=== PATIENT | male | born 1970 | race Caucasian/White ===

== ENCOUNTER 2018-07-27 10:49 | Day surgery (SDC) | payer MEDICARE ==
[~2018-07-27] VITALS: Ht 182.9 cm; Wt 86.2 kg
[2018-07-27] MEDS ORDERED: fentaNYL PF VIAL 100 MCG/2 ML VIAL IV ONE (11:15)
[2018-07-27] MEDS ORDERED: IV NORMAL SALINE 1000ML BAG 1,000 ML IV ONE (11:15)
[2018-07-27] MEDS ORDERED: ONDANSETRON PF 4 MG/2 ML VIAL. IV ONE (11:15)
[2018-07-27] MEDS ORDERED: MORPHINE SULFATE 4 MG/ML VIAL. IV ONE (11:45)
[2018-07-27 11:53] LABS: BASO % 1 % (0-3); EOS # 0.2 x10^3/uL (0.0-0.7); EOS % 2 % (0-3); HEMATOCRIT 45.5 % (39.0-53.0); HEMOGLOBIN 15.6 g/dL (13.0-17.5); LYMPH # 1.3 x10^3/uL (1.0-4.8); LYMPH % 20 % (24-48); MEAN CORPUSCULAR HEMOGLOBIN 30 pg (25-35); MEAN CORPUSCULAR HGB CONC 34 g/dL (31-37); MEAN CORPUSCULAR VOLUME 86 fL (79-100); MONO # 0.4 x10^3/uL (0.0-1.1); MONO % 6 % (0-9); NEUT # 4.4 x10^3uL (1.8-7.7); NEUT % 71 % (31-73); PLATELET COUNT 205 x10^3/uL (140-400); RED BLOOD COUNT 5.31 x10^6/uL (4.30-5.70); RED CELL DISTRIBUTION WIDTH 12.9 % (11.5-14.5); WHITE BLOOD COUNT 6.2 x10^3/uL (4.0-11.0)
[2018-07-27 12:01] LABS: CALCIUM 8.5 mg/dL (8.5-10.1); CREATININE 1.3 mg/dL (0.7-1.3); GFR 59.7; POTASSIUM 4.2 mmol/L (3.5-5.1)
[2018-07-27 12:02] LABS: PROTHROMBIN TIME PATIENT 13.1 SEC (11.7-14.0)
[2018-07-27 12:06] LABS: ALBUMIN 3.6 g/dL (3.4-5.0); ALBUMIN/GLOBULIN RATIO 1.1 (1.0-1.7); TOTAL BILIRUBIN 0.5 mg/dL (0.2-1.0)
--- NOTE | 2018-07-27 12:12 | PHYS DOC ---
Past Medical History Past Medical History: No Pertinent History, Seizure Past Surgical History: Appendectomy Alcohol Use: Occasionally Drug Use: None Adult General Chief Complaint Chief Complaint: LOWEREXTREMITY INJURY HPI HPI Patient is a 47 year old male who presents with complaining of injury to right lower extremity. Patient states he was cutting wood and dropped his chainsaw with a large laceration to medial side of right lower extremity with other injuries. Patient rated his pain 10 over 10 and is state yesterday of bleeding that stopped with applying pressure dressing. Patient states he does not feel his leg. patient is up-to-date with tetanus immunization. Review of Systems Review of Systems Constitutional: Denies fever or chills [] Eyes: Denies change in visual acuity, redness, or eye pain [] HENT: Denies nasal congestion or sore throat [] Respiratory: Denies cough or shortness of breath [] Cardiovascular: No additional information not addressed in HPI [] GI: Denies abdominal pain, nausea, vomiting, bloody stools or diarrhea [] : Denies dysuria or hematuria [] Musculoskeletal: Denies back pain, reports extremity pain Integument: Denies rash or skin lesions [] Neurologic: Denies headache, focal weakness or sensory changes [] Endocrine: Denies polyuria or polydipsia [] All other systems were reviewed and found to be within normal limits, except as documented in this note. Current Medications Current Medications Current Medications Medications (Trade) Dose Ordered Sig/Denis Start Time Stop Time Status Last Admin Dose Admin Cefazolin Sodium/ Dextrose 50 ml @ 100 mls/hr 1X ONCE 07/27/18 11:45 07/27/18 12:14 DC 07/27/18 12:54 100 MLS/HR Fentanyl Citrate (Fentanyl 2ml Vial) 50 mcg 1X ONCE 07/27/18 11:15 07/27/18 11:19 DC 07/27/18 11:29 50 MCG Morphine Sulfate (Morphine Sulfate) 4 mg 1X ONCE 07/27/18 11:45 07/27/18 11:46 DC 07/27/18 11:45 4 MG Ondansetron HCl (Zofran) 4 mg 1X ONCE 07/27/18 11:15 07/27/18 11:19 DC 07/27/18 11:29 4 MG Ringer's Solution 1,000 ml @ 30 mls/hr Q24H 07/27/18 12:47 07/28/18 00:46 Sodium Chloride 1,000 ml @ 1,000 mls/hr 1X ONCE 07/27/18 11:15 07/27/18 12:14 DC 07/27/18 11:27 1,000 MLS/HR Allergies Allergies Allergies Coded Allergies Type Severity Reaction Last Updated Verified No Known Drug Allergies 07/27/18 No Physical Exam Physical Exam Constitutional: Well developed, well nourished, moderate distress, non-toxic appearance. [] HENT: Normocephalic, atraumatic Eyes: PERRLA, EOMI, conjunctiva normal, no discharge. [] Neck: Normal range of motion, no tenderness, supple, no stridor. [] Cardiovascular:Heart rate regular rhythm, no murmur [] Lungs & Thorax: Bilateral breath sounds clear to auscultation [] Skin: Warm, dry, no erythema, no rash. [] Back: No tenderness, no CVA tenderness. [] Extremities: 15 cm oblique laceration of medial side of right mid leg extended to subcutaneous and muscle area with active arterial bleeding that stopped with pressure dressing, no acute neurovascular deficit, no paresthesia or weakness, good peripheral pulses. Neurologic: Alert and oriented X 3, normal motor function, normal sensory function, no focal deficits noted. [] Psychologic: Affect normal, judgement normal, mood normal. [] Current Patient Data Vital Signs Vital Signs Date Time Temp Pulse Resp B/P (MAP) Pulse Ox O2 Delivery O2 Flow Rate FiO2 07/27/18 12:45 78 16 131/79 (96) 99 Room Air 07/27/18 10:55 98.0 98.0 Lab Values Laboratory Tests Test 07/27/18 11:00 White Blood Count 6.2 x10^3/uL (4.0-11.0) Red Blood Count 5.31 x10^6/uL (4.30-5.70) Hemoglobin 15.6 g/dL (13.0-17.5) Hematocrit 45.5 % (39.0-53.0) Mean Corpuscular Volume 86 fL (79-100) Mean Corpuscular Hemoglobin 30 pg (25-35) Mean Corpuscular Hemoglobin Concent 34 g/dL (31-37) Red Cell Distribution Width 12.9 % (11.5-14.5) Platelet Count 205 x10^3/uL (140-400) Neutrophils (%) (Auto) 71 % (31-73) Lymphocytes (%) (Auto) 20 % (24-48) L Monocytes (%) (Auto) 6 % (0-9) Eosinophils (%) (Auto) 2 % (0-3) Basophils (%) (Auto) 1 % (0-3) Neutrophils # (Auto) 4.4 x10^3uL (1.8-7.7) Lymphocytes # (Auto) 1.3 x10^3/uL (1.0-4.8) Monocytes # (Auto) 0.4 x10^3/uL (0.0-1.1) Eosinophils # (Auto) 0.2 x10^3/uL (0.0-0.7) Basophils # (Auto) 0.0 x10^3/uL (0.0-0.2) Prothrombin Time 13.1 SEC (11.7-14.0) Prothrombin Time INR 1.0 (0.8-1.1) Sodium Level 138 mmol/L (136-145) Potassium Level 4.2 mmol/L (3.5-5.1) Chloride Level 99 mmol/L (98-107) Carbon Dioxide Level 27 mmol/L (21-32) Anion Gap 12 (6-14) Blood Urea Nitrogen 20 mg/dL (8-26) Creatinine 1.3 mg/dL (0.7-1.3) Estimated GFR (Cockcroft-Gault) 59.7 BUN/Creatinine Ratio 15 (6-20) Glucose Level 154 mg/dL (70-99) H Calcium Level 8.5 mg/dL (8.5-10.1) Total Bilirubin 0.5 mg/dL (0.2-1.0) Aspartate Amino Transferase (AST) 19 U/L (15-37) Alanine Aminotransferase (ALT) 36 U/L (16-63) Alkaline Phosphatase 85 U/L (46-116) Total Protein 7.0 g/dL (6.4-8.2) Albumin 3.6 g/dL (3.4-5.0) Albumin/Globulin Ratio 1.1 (1.0-1.7) Laboratory Tests 07/27/18 11:00 Laboratory Tests 07/27/18 11:00 EKG EKG [] Radiology/Procedures Radiology/Procedures [facility] [address] [place] [address] IMAGING REPORT Signed PATIENT: LESLY LARES ACCOUNT: [id number] : 1970 LOCATION: ER AGE: 47 SEX: M EXAM STATUS: REG ER ORD. PHYSICIAN: OLU KNOX MD REASON: injury PROCEDURE: TIBIA FIBULA RIGHT Right tibia and fibula 2 views. HISTORY: Laceration from chainsaw AP and lateral views were taken of the right tibia and fibula. There is soft tissue injury medially. There is no acute fracture. There is no acute osseous abnormality. IMPRESSION: 1. Soft tissue injury. 2. No acute fracture. Electronically signed by: Bro Laughlin MD (07/27/2018 12:17 PM) [facility] DICTATED and SIGNED BY: BRO LAUGHLIN MD DATE: 07/27/18 1211 Course & Med Decision Making Course & Med Decision Making Pertinent Labs and Imaging studies reviewed. (See chart for details) Evaluation of patient in ER showed 47-year-old male patient with chainsaw laceration of right leg with skin and subcutaneous and muscular laceration with arterial bleeding patient treated with IV fluid, fentanyl, morphine, Ancef. Dr. Moore was consulted at 1152 and plans to take patient to operating room for repair. Dragon Disclaimer Dragon Disclaimer This electronic medical record was generated, in whole or in part, using a voice recognition dictation system. Departure Departure Impression: Primary Impression: Laceration of right lower leg Disposition: HOME, SELF-CARE (transferred to operating room for outpatient treatment of complex laceration of leg) Condition: IMPROVED Referrals: Jesica RAMACHANDRAN MD (PCP) GREER MOORE MD Additional Instructions: Follow-up with Dr. Moore orders OLU KNOX MD Jul 27, 2018 12:12
--- NOTE | 2018-07-27 12:20 | RAD ---
Right tibia and fibula 2 views. HISTORY: Laceration from chainsaw AP and lateral views were taken of the right tibia and fibula. There is soft tissue injury medially. There is no acute fracture. There is no acute osseous abnormality. IMPRESSION: 1. Soft tissue injury. 2. No acute fracture. Electronically signed by: Bro Laughlin MD (07/27/2018 12:17 PM) [facility]
[2018-07-27] MEDS ORDERED: IV RINGERS,LACTATED 1000ML 1,000 ML IV SCH (12:47)
[2018-07-27] MEDS ORDERED: BUPIVACAINE MPF 0.5% 30 ML VIAL. ONE (12:51)
[2018-07-27] MEDS ORDERED: fentaNYL PF VIAL 250 MCG/5 ML VIAL ONE (12:53)
[2018-07-27] MEDS ORDERED: SUCCINYLCHOLINE 200 MG/10 ML VIAL. ONE (12:53)
[2018-07-27] MEDS ORDERED: HYDROmorphone 2 MG/ML VIAL IV PRN (13:00)
[2018-07-27] MEDS ORDERED: PROCHLORPERAZINE 10 MG/2 ML VIAL. IV PRN (13:00)
[2018-07-27] MEDS ORDERED: HYDROmorphone 2 MG/ML VIAL IV ONE (13:00)
[2018-07-27] MEDS ORDERED: MORPHINE SULFATE 2 MG/ML VIAL. IV PRN (13:00)
[2018-07-27] MEDS ORDERED: ONDANSETRON PF 4 MG/2 ML VIAL. IV PRN (13:00)
[2018-07-27] MEDS ORDERED: fentaNYL PF VIAL 100 MCG/2 ML VIAL IV PRN ×2 (13:00)
--- NOTE | 2018-07-27 14:31 | PDOC4 ---
Operative Note Operative Note Surgery: 07/27/2018 Preoperative diagnosis: Complex laceration right leg Postoperative diagnosis: Same with involvement of muscle fascia subcutaneous and skin Operative procedure: Irrigation debridement right leg with complex closure of right leg wound 19 cm Surgeon: Chantelle Anesthesia: Gen. Estimated blood loss: 50 mL Complications: None Operative indications: Patient is a 47-year-old male that injured himself today with a chainsaw and came into the emergency department with a deep leg wound was significant bleeding could only be controlled by pressure. I went over with him the recommendation to proceed with operative treatment given the deep nature the wound possibility of contamination and infection and ongoing bleeding. All his questions were answered he wished to proceed with surgical evaluation and treatment. Operative text: Patient was identified procedure verified patient placed in the supine position on the operating table. After adequate amounts of general anesthesia were administered a thigh tourniquet was placed in the right lower extremity was prepped and draped in standard sterile fashion. After timeout was performed patient procedure identified and verified the right lower extremity was thoroughly debrided including skin edges which were devitalized due to the injury subcutaneous tissue fascia and muscle all of which were debrided bleeding points were controlled by electrocautery thorough irrigation carried out with normal saline solution with pulse lavage fascia was closed with 2-0 Vicryl suture subcutaneous closure with buried 2-0 Vicryl suture skin closure with apolinar sterile dressings were applied patient was returned to recovery room in stable condition having tolerated procedure well GREER MOORE MD Jul 27, 2018 14:31
--- NOTE | 2018-07-27 14:32 | DISCH ---
DISCHARGE INSTRUCTIONS Condition on Discharge Condition on Discharge: Stable Activity After Discharge Activity Instructions for Disc: Other, see below (walk around house minimally as necessary such as getting up to eat go to the bathroom etc. otherwise elevate leg) Weight Bearing Status after Di: As tolerated Diet after Discharge Diet after Discharge: Regular Wound Incision Care Wound/Incision Care: Keep wound elevated, Do not change dressing (keep dressing intact for at least the next 4 days report any redness drainage fever chills uncontrolled pain or other problems) Contacting the DRJason after DC Call your doctor for: Concerns you may have Follow-Up Follow up with: Dr. Lockhart 10-14 days GREER LOCKHART MD Jul 27, 2018 14:32
[2018-07-27] MEDS ORDERED: HYDR-3165 PO (14:33)
[2018-07-27] MEDS ORDERED: CEPH-264 PO (14:34)
[2018-07-27] MEDS ORDERED: LIDOCAINE 2% PF 5 ML VIAL. ONE (14:34)
[2018-07-27] MEDS ORDERED: PROPOFOL 20 ML IV ONE (14:34)
[2018-07-27] MEDS ORDERED: DEXAMETHASONE SOD PHOS 20 MG/5 ML VIAL. ONE (14:35)
[2018-07-27] MEDS ORDERED: SEVOFLURANE 16 TO 30 MINUTES. IH ONE (14:35)
[2018-07-27] MEDS ORDERED: ONDANSETRON PF 4 MG/2 ML VIAL. ONE (14:35)
[2018-07-27 15:11] VITALS: BP 132/82
--- NOTE | 2018-07-28 03:15 | CONS ---
DATE OF CONSULTATION: 07/27/2018 ORTHOPEDIC CONSULTATION REQUESTING PHYSICIAN: Dr. Ne Zelaya, [facility]. REASON FOR CONSULTATION: Right leg laceration. HISTORY OF PRESENT ILLNESS: The patient is a 47-year-old male who was cutting wood today, dropped his chainsaw and it lacerated his right leg. He has severe pain and severe bleeding. That was only controlled with a pressure dressing in the Emergency Department. He stated initially could not feel his leg. PAST MEDICAL HISTORY: Seizures. PAST SURGICAL HISTORY: Appendectomy. MEDICATIONS: Flonase and Zyrtec. ALLERGIES: He has no known drug allergies. SOCIAL HISTORY: Denies tobacco or drug use. Occasional consumption of alcohol. REVIEW OF SYSTEMS: Significant for only the right leg laceration and pain. PHYSICAL EXAMINATION: VITAL SIGNS: Temperature 98.0, pulse 95, respirations 20, blood pressure 138/83, 97% saturation on room air. HEENT: Atraumatic, normocephalic. HEART: Regular rate and rhythm. LUNGS: Clear to auscultation bilaterally. ABDOMEN: Benign. EXTREMITIES: Examination of the right leg reveals a 10 inches laceration roughly to is a right medial leg where obvious exposed muscle. IMPRESSION: Right leg laceration with a chainsaw. TREATMENT PLAN: I went over with him the necessity of taking this into the operating room, washing it out well and planned closure. Currently, it does not appear as if there is any nerve or tendon involvement. However, any restrictions will be based on findings intraoperatively. All his questions were answered. He wishes to proceed with surgical evaluation and treatment, which will occur emergently today. It is noted that he is n.p.o. since 8:45 this morning. GREER MOORE MD DR: JOLEEN/jen JOB#: [id number] / [id number]
== END 2018-07-27 15:10 | disposition home or self-care (01) ==
LOC: ER 10:49 → OPS 12:50
PROVIDERS: ATTEND Orthopaedic Surgery
DX: S86.821A Laceration of other muscle(s) and tendon(s) at lower leg level, right leg, initial encounter (principal); Z90.49 Acquired absence of other specified parts of digestive tract; Z79.01 Long term (current) use of anticoagulants; Z72.89 Other problems related to lifestyle; Z79.899 Other long term (current) drug therapy; W27.8XXA Contact with other nonpowered hand tool, initial encounter; Y93.89 Activity, other specified; Y92.89 Other specified places as the place of occurrence of the external cause; Y99.8 Other external cause status
CPT/HCPCS: 12035; 36415; 73590; 80053; 85025; 85610; A7015; J0330; J0696; J1100; J1170; J2001; J2270; J2405; J2704; J3010; J3490; J7030; A4461

== ENCOUNTER → 2021-08-01 | Outpatient (CLI) | payer MEDICARE ==
[~2021-08-01] MED LIST: CEPH-264 PO; HYDR-3165 PO
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
== END ==
LOC: KCIC 08:22
PROVIDERS: ATTEND Family Medicine
DX: M77.32 Calcaneal spur, left foot (principal); M25.872 Other specified joint disorders, left ankle and foot
CPT/HCPCS: 73630